=== PATIENT | male | born 1945 | race Caucasian/White ===

== ENCOUNTER 2019-03-13 08:20 | Observation (INO) | payer SELFPAY ==
[~2019-03-13] VITALS: Ht 175.3 cm; Wt 126.5 kg
[~2019-03-13 08:20] MED LIST: ALBU.083IS IH; ALBUTEROL INH; ASPI81CH PO; ATEN25 PO; ATOR20 PO; CITA20 PO; CYCL10 PO; DOCU100 PO; ERGO400 PO; FURO20 PO; GABA300 PO; IBUP600 PO; LOSHYD PO; MONT10T PO; Micro-K10 MEQ PO; NITR.4SL SL; NYST100TO TOP; OMEP20ER PO; OXYC5 PO; POTCHL20ER PO; QUETIAPINE FUMA50 MG PO; RANI150 PO; SENN187 PO; TERA5 PO; TRAZ50 PO
[2019-03-13] MEDS ORDERED: ALLO300 PO (08:37)
[2019-03-13] MEDS ORDERED: LO-DOSE ASPIRIN81 MG PO (08:37)
[2019-03-13] MEDS ORDERED: Acetaminophen-1 EAC1 PO (08:39)
[2019-03-13] MEDS ORDERED: CYAN500 PO (08:40)
[2019-03-13] MEDS ORDERED: FISH OIL 1,0001 EACH PO (08:40)
[2019-03-13] MEDS ORDERED: FOLI1 PO (08:41)
[2019-03-13] MEDS ORDERED: LOSA50 PO (08:42)
[2019-03-13] MEDS ORDERED: POTCHL10ER PO (08:45)
[2019-03-13] MEDS ORDERED: Sulindac200 MG PO (08:47)
[2019-03-13] MEDS ORDERED: Hytrin2 MG PO (08:48)
[2019-03-13] MEDS ORDERED: B-1100 MG PO (08:49)
[2019-03-13] MEDS ORDERED: TRAZ100 PO (08:49)
--- NOTE | 2019-03-13 10:20 | NUR ---
PT ARRIVED TO UNIT FROM ER AT APROX 1015. PT REPORTS 3/10 RLQ PAIN-TOLERABLE AT THIS TIME. PER ER DR GARCIA NOTIFIED OF CONSULT. PT NPO AT THIS TIME.
--- NOTE | 2019-03-13 15:00 | NUR ---
pt transported to daysurgery via stretcher by SUNG Guajardo, emptied bladder, chlorhexidine wash completed, underwear removed
--- NOTE | 2019-03-13 15:15 | NUR ---
INTO SDS VIA [facility]. PT A&OX3. [place]. REPORTS 01/21 ABDOMINAL PAIN LEFT>RIGHT. HISTORY AND ALLERGIES REVIEWED. NPO STATUS CONFIRMED. LUNGS WITH SCATTERED EXPIRATORY WHEEZES -SATS>90% ON RA. DUONEB GIVEN PER ORDERS.
--- NOTE | 2019-03-13 17:01 | NUR ---
03/13/19 1701 Austin Niño PATIENT ON SCHEDULED ANTIBIOTICS. [facility] CATH PLACED BY DIAMANTE GARCÍA
--- NOTE | 2019-03-13 18:31 | NUR ---
PT GAVE PERMISSION FOR STUDENT TO OBSERVE CARE.
--- NOTE | 2019-03-13 18:54 | NUR ---
pt transferred back to room from PACU via stretcher, a/0 x 4, pleasant/cooperative, states to no pain at this time, post op vs commenced, provided with clear liquids
--- NOTE | 2019-03-13 19:46 | NUR ---
shift summary: vss, no acute changes, pt returned to unit approx 1840 following laparascopic appendectomy, a/o x 4, pleasant/cooperative, joking, states he is hungry, denies pain. Pt calls for urinal appropriately
--- NOTE | 2019-03-13 22:45 | NUR ---
BIOX O2 SAT LEVELS CONTINUE TO DROP INTO THE 80'S, FOLLOWED BY A HR DROP INTO THE 40'S. WHEN PT WOKEN UP HIS SATS AND HR RETURN TO 90'S AND 60-80 RESPECTIVELY. WILL CONTACT RT.
--- NOTE | 2019-03-13 22:56 | NUR ---
RT AT BEDSIDE TO ASSESS PT'S CPAP MASK FIT.
--- NOTE | 2019-03-14 02:00 | NUR ---
CONTACTED DR. HUNT AFTER PT'S HR CONTINUED TO DROP INTO THE 30'S AND 40'S. HE IS ASYMPTOMATIC AND IMMEDIATELY RETURNS TO 60'S AND 70'S WHEN MADE AWAKE. ORDERS RECEIVED TO CONTINUE TO MONITOR.
[2019-03-14 05:03] LABS: BASOPHILS ABSOLUTE AUTO 0.01 K/mm3 (0.00-0.23); BASOPHILS PERCENT AUTO 0 % (0-2); EOSINOPHILS ABSOLUTE AUTO 0.02 K/mm3 (0.00-0.68); EOSINOPHILS PERCENT AUTO 0 % (0-6); Hematocrit 39.4 % (37.0-53.0); Hemoglobin 12.7 g/dL (13.5-17.5); IMMATURE GRAN ABSOLUTE AUTO 0.06 K/mm3 (0.00-0.10); IMMATURE GRAN PERCENT AUTO 1 % (0-1); LYMPHOCYTES ABSOLUTE AUTO 0.59 K/mm3 (0.84-5.20); LYMPHOCYTES PERCENT AUTO 5 % (21-46); MONOCYTES ABSOLUTE AUTO 0.38 K/mm3 (0.16-1.47); MONOCYTES PERCENT AUTO 4 % (4-13); Mean Corpuscular HGB 30.8 pg (26.0-34.0); Mean Corpuscular HGB Conc 32.2 g/dL (31.5-36.5); Mean Platelet Volume 9.6 fL (9.1-12.4); NEUTROPHILS ABSOLUTE AUTO 9.81 K/mm3 (1.96-9.15); NEUTROPHILS PERCENT AUTO 90 % (41-73); Platelet Count 148 K/mm3 (150-400); RDW Coefficient Variation 14.9 % (11.7-14.2); RDW Standard Deviation 51.8 fL (35.1-46.3); Red Blood Cell Count 4.13 M/mm3 (4.30-5.90); White Blood Cell Count 10.87 K/mm3 (4.00-11.30)
[2019-03-14 05:06] LABS: Mean Corpuscular Volume 95 fL (80-100)
[2019-03-14 05:20] LABS: Bun/Creatinine Ratio 17.6 (12.0-20.0); Calcium, Blood 8.4 mg/dL (8.5-10.1); Creatinine, Blood 1.25 mg/dL (0.60-1.20); Potassium, Blood 4.2 mmol/L (3.5-5.5)
--- NOTE | 2019-03-14 06:38 | NUR ---
LYING ON HIS LEFT SIDE FACING THE DOOR WITH EYES CLOSED. DENIES FURTHER NEEDS OR WANTS AT THIS TIME. NO CHANGES SINCE START OF SHIFT. SAFETY MEASURES IN PLACE. WILL GIVE HAND OFF TO ONCOMING SHFIT USING SBAR.
--- NOTE | 2019-03-14 09:05 | NUR ---
DR SHOOK HERE TO SEE PT.
--- NOTE | 2019-03-14 15:40 | NUR ---
DR GARCIA HERE TO SEE PT.
[2019-03-14] MEDS ORDERED: Norco 5-325 Ta1 EACH PO (17:12)
[2019-03-14] MEDS ORDERED: Augmentin 875-1 EACH PO (17:12)
--- NOTE | 2019-03-14 17:39 | NUR ---
DISCHARGE MED[facility]; PT UNDERSTANDS DISCHAREGE INSTRUCTIONS. TOLERATING DIET, VOIDING, PASSING GAS, PAIN WELL CONTROLLED. PT AMBULATES OUT BY CHOICE. DECLINES W/C.
== END 2019-03-14 17:41 | disposition home or self-care (01) ==
LOC: ER 08:20 → EDSTATUS 08:22 → ER 09:03 → SURS 09:03 → ERHOLD 09:03 → SURS 09:56 → ERHOLD 09:56 → SURS 09:57 → ERHOLD 10:04 → SURS 03-14 17:41
PROVIDERS: ADMIT Family Medicine
PROC: 0DTJ4ZZ Resection of Appendix, Percutaneous Endoscopic Approach (ICD-10-PCS; principal; 2019-03-14)
DX: K35.80 Unspecified acute appendicitis (principal); I10 Essential (primary) hypertension; E78.5 Hyperlipidemia, unspecified; J44.9 Chronic obstructive pulmonary disease, unspecified; G47.33 Obstructive sleep apnea (adult) (pediatric); G89.4 Chronic pain syndrome; E66.9 Obesity, unspecified; D72.829 Elevated white blood cell count, unspecified; K21.9 Gastro-esophageal reflux disease without esophagitis; M10.9 Gout, unspecified; Z88.8 Allergy status to other drugs, medicaments and biological substances; Z99.89 Dependence on other enabling machines and devices; Z79.899 Other long term (current) drug therapy; Z79.82 Long term (current) use of aspirin; Z87.891 Personal history of nicotine dependence; Z68.41 Body mass index [BMI] 40.0-44.9, adult
CPT/HCPCS: 36415; 74177; 80048; 82947; 85025; 88304; 94762; 96374-59; 99285-25; A9270-GY; G0378; J0295; J1100; J2250; J2370; J2405; J2704; J2710; J3010; J7030; J7120; Q9967

== ENCOUNTER 2019-12-27 10:26 | Day surgery (SDC) | payer OTHER ==
[~2019-12-27] VITALS: Ht 175.3 cm; Wt 129.0 kg
[~2019-12-27 10:26] MED LIST changes: +ALLO300 PO; +Acetaminophen-1 EAC1 PO; +Augmentin 875-1 EACH PO; +B-1100 MG PO; +CYAN500 PO; +FISH OIL 1,0001 EACH PO; +FOLI1 PO; +Hytrin2 MG PO; +LO-DOSE ASPIRIN81 MG PO; +LOSA50 PO; +Norco 5-325 Ta1 EACH PO; +PAXIL40 M1 PO; +POTCHL10ER PO; +SERT100 PO; +Sulindac200 MG PO; +TRAZ100 PO; +Voltaren100 GM
--- NOTE | 2019-12-27 16:15 | NUR ---
DISCHARGE PT REMAINED A&OX3 AND DENIED ANY PAIN DURING RECOVERY. IV DC'D WITH TIP IN TACT. DISCHARGE PAPERWORK GONE OVER WITH PT. PT VERBALLY STATED THE UNDERSTANDING OF THE DISCHARGE EDUCATION AND DENIED ANY QUESTIONS AT THIS TIME. R RADIAL SITE CDI-NO HEMATOMA NOTED-CLOTH DOT BANDAGE AND WHITE BOARD IN PLACE. PT ABULATED TO RESTROOM WITH STA AND DRESSSED SELF WITH LITTLE HELP. PT TAKEN BY WHEELCHAIR WITH ESCORT.
== END 2019-12-27 23:02 | disposition home or self-care (01) ==
LOC: MHTC 10:26
PROC: B201YZZ Plain Radiography of Multiple Coronary Arteries using Other Contrast (ICD-10-PCS; principal; 2019-12-27)
PROC: 4A023N7 Measurement of Cardiac Sampling and Pressure, Left Heart, Percutaneous Approach (ICD-10-PCS; principal; 2019-12-27)
DX: I25.10 Atherosclerotic heart disease of native coronary artery without angina pectoris (principal); K21.9 Gastro-esophageal reflux disease without esophagitis; F32.9 Major depressive disorder, single episode, unspecified; I10 Essential (primary) hypertension; E66.9 Obesity, unspecified; M10.9 Gout, unspecified; Z87.891 Personal history of nicotine dependence; Z88.8 Allergy status to other drugs, medicaments and biological substances; Z79.82 Long term (current) use of aspirin; Z79.899 Other long term (current) drug therapy; Z68.41 Body mass index [BMI] 40.0-44.9, adult
CPT/HCPCS: 93005; 93010; 93454; 99152; 99153; C1769; C1894; J1644; J2250; J3010; J7030; Q9967

== ENCOUNTER 2020-01-20 14:06 | Emergency (ER) | payer OTHER ==
[~2020-01-20] VITALS: Ht 177.8 cm; Wt 83.5 kg
[2020-01-20 15:10] LABS: BASOPHILS ABSOLUTE AUTO 0.04 K/mm3 (0.00-0.23); BASOPHILS PERCENT AUTO 0 % (0-2); EOSINOPHILS ABSOLUTE AUTO 0.06 K/mm3 (0.00-0.68); EOSINOPHILS PERCENT AUTO 1 % (0-6); Hematocrit 40.4 % (37.0-53.0); Hemoglobin 13.2 g/dL (13.5-17.5); IMMATURE GRAN ABSOLUTE AUTO 0.09 K/mm3 (0.00-0.10); IMMATURE GRAN PERCENT AUTO 1 % (0-1); LYMPHOCYTES PERCENT AUTO 9 % (21-46); MONOCYTES ABSOLUTE AUTO 1.01 K/mm3 (0.16-1.47); MONOCYTES PERCENT AUTO 8 % (4-13); Mean Corpuscular HGB 29.9 pg (26.0-34.0); Mean Corpuscular HGB Conc 32.7 g/dL (31.5-36.5); Mean Corpuscular Volume 91 fL (80-100); Mean Platelet Volume 10.3 fL (9.1-12.4); NEUTROPHILS ABSOLUTE AUTO 10.24 K/mm3 (1.96-9.15); NEUTROPHILS PERCENT AUTO 82 % (41-73); Platelet Count 151 K/mm3 (150-400); RDW Coefficient Variation 13.9 % (11.7-14.2); RDW Standard Deviation 46.9 fL (35.1-46.3); Red Blood Cell Count 4.42 M/mm3 (4.30-5.90); White Blood Cell Count 12.54 K/mm3 (4.00-11.30)
[2020-01-20 15:11] LABS: Source, Urine Clean Catch
[2020-01-20 15:26] LABS: Alanine Aminotransfer (ALT/SGP 22 U/L (12-78); Albumin, Blood 3.2 g/dL (3.4-5.0); Albumin/Globulin Ratio 0.8 (0.8-1.8); Alk Phos 82 U/L (50-136); Anion Gap 5 mmol/L (6-16); Aspartate Aminotrans (AST/SGOT 27 U/L (12-37); Blood Urea Nitrogen 23 mg/dL (8-24); Bun/Creatinine Ratio 19.3 (12.0-20.0); CO2, Blood 28 mmol/L (21-32); Calcium, Blood 8.8 mg/dL (8.5-10.1); Chloride, Blood 107 mmol/L (98-108); Creatinine, Blood 1.19 mg/dL (0.60-1.20); Globulin, Blood 3.8 g/dL (2.2-4.0); Glomerular Filtration Rate >60 (60-); Glucose, Blood 122 mg/dL (70-99); Potassium, Blood 4.1 mmol/L (3.5-5.5); Sodium, Blood 140 mmol/L (136-145)
[2020-01-20 15:27] LABS: Bilirubin, Urine Neg (Neg); Blood, Urine 3+ (Neg); Glucose Qualitative, Urine Neg (Neg); Ketones, Urine 1+ (Neg); Leukocyte Esterase, Urine 2+ (Neg); Nitrite, Urine Neg (Neg); Protein, Urine 2+ (Neg); Urobilinogen, Urine 2+ (Normal)
[2020-01-20 15:33] LABS: Appearance, Urine Hazy (Clear); Color, Urine Amber (P-Yellow)
[2020-01-20 15:34] LABS: Bacteria Few /hpf; Squamous Epithelial Cells Few /hpf (Few); White Blood Cells, Urine 25-50 /hpf (0-5)
[2020-01-20] MEDS ORDERED: CEPH500 PO (16:52)
[2020-01-20] MEDS ORDERED: Cipro500 MG PO (16:52)
== END 2020-01-20 17:07 | disposition home or self-care (01) ==
LOC: ER 14:06
PROVIDERS: Physician Assistant
DX: N12 Tubulo-interstitial nephritis, not specified as acute or chronic (principal); J44.9 Chronic obstructive pulmonary disease, unspecified; I11.0 Hypertensive heart disease with heart failure; I50.9 Heart failure, unspecified; K21.9 Gastro-esophageal reflux disease without esophagitis; Z87.891 Personal history of nicotine dependence; Z88.8 Allergy status to other drugs, medicaments and biological substances; Z79.82 Long term (current) use of aspirin; Z79.899 Other long term (current) drug therapy
CPT/HCPCS: 36415; 71045; 80053; 81001; 83605; 85025; 87086; 96361; 96365; 99283-25; J0696; J7030

== ENCOUNTER 2020-05-01 21:30 | Emergency (ER) | payer OTHER ==
[~2020-05-01] VITALS: Ht 175.3 cm; Wt 127.0 kg
[~2020-05-01 21:30] MED LIST changes: +CEPH500 PO; +Cipro500 MG PO
== END 2020-05-01 23:11 | disposition home or self-care (01) ==
LOC: ER 21:30
DX: F12.929 Cannabis use, unspecified with intoxication, unspecified (principal); F41.0 Panic disorder [episodic paroxysmal anxiety]; I11.0 Hypertensive heart disease with heart failure; I50.9 Heart failure, unspecified; J44.9 Chronic obstructive pulmonary disease, unspecified; E78.5 Hyperlipidemia, unspecified; K21.9 Gastro-esophageal reflux disease without esophagitis; Z88.8 Allergy status to other drugs, medicaments and biological substances; Z79.899 Other long term (current) drug therapy; Z79.82 Long term (current) use of aspirin
CPT/HCPCS: 99284

== ENCOUNTER 2020-09-07 10:29 | Emergency (ER) | payer OTHER ==
[~2020-09-07] VITALS: Ht 175.3 cm; Wt 128.4 kg
[~2020-09-07 10:29] MED LIST changes: -CYAN500 PO; -GABA300 PO; -LO-DOSE ASPIRIN81 MG PO; -LOSA50 PO; -TRAZ100 PO; -Voltaren100 GM
[2020-09-07 11:16] LABS: BASOPHILS ABSOLUTE AUTO 0.02 K/mm3 (0.00-0.23); BASOPHILS PERCENT AUTO 0 % (0-2); EOSINOPHILS ABSOLUTE AUTO 0.15 K/mm3 (0.00-0.68); EOSINOPHILS PERCENT AUTO 3 % (0-6); Hemoglobin 13.6 g/dL (13.5-17.5); IMMATURE GRAN ABSOLUTE AUTO 0.01 K/mm3 (0.00-0.10); IMMATURE GRAN PERCENT AUTO 0 % (0-1); LYMPHOCYTES ABSOLUTE AUTO 1.16 K/mm3 (0.84-5.20); LYMPHOCYTES PERCENT AUTO 24 % (21-46); MONOCYTES ABSOLUTE AUTO 0.42 K/mm3 (0.16-1.47); MONOCYTES PERCENT AUTO 9 % (4-13); Mean Corpuscular HGB Conc 32.4 g/dL (31.5-36.5); Mean Corpuscular Volume 93 fL (80-100); Mean Platelet Volume 9.5 fL (9.1-12.4); NEUTROPHILS ABSOLUTE AUTO 3.13 K/mm3 (1.96-9.15); NEUTROPHILS PERCENT AUTO 64 % (41-73); Platelet Count 185 K/mm3 (150-400); RDW Standard Deviation 47.8 fL (35.1-46.3); Red Blood Cell Count 4.54 M/mm3 (4.30-5.90); White Blood Cell Count 4.89 K/mm3 (4.00-11.30)
[2020-09-07 11:40] LABS: Alanine Aminotransfer (ALT/SGP 27 U/L (12-78); Albumin, Blood 3.5 g/dL (3.4-5.0); Albumin/Globulin Ratio 1.1 (0.8-1.8); Alk Phos 103 U/L (50-136); Anion Gap 8 mmol/L (6-16); Aspartate Aminotrans (AST/SGOT 17 U/L (12-37); Bilirubin, Total 0.6 mg/dL (0.1-1.0); Blood Urea Nitrogen 19 mg/dL (8-24); CO2, Blood 24 mmol/L (21-32); Calcium, Blood 8.8 mg/dL (8.5-10.1); Chloride, Blood 112 mmol/L (98-108); Creatinine, Blood 1.19 mg/dL (0.60-1.20); Globulin, Blood 3.2 g/dL (2.2-4.0); Glomerular Filtration Rate >60 (60-); Glucose, Blood 131 mg/dL (70-99); Potassium, Blood 3.6 mmol/L (3.5-5.5); Sodium, Blood 144 mmol/L (136-145); Total Protein, Blood 6.7 g/dL (6.4-8.2); Troponin I <0.015 ng/mL (0.000-0.040)
[2020-09-07] MEDS ORDERED: MECL12.5 PO (13:02)
[2020-09-07] MEDS ORDERED: ASPIR 8181 M1 PO (16:45)
[2020-09-07] MEDS ORDERED: GABA300 PO (16:45)
[2020-09-07] MEDS ORDERED: LOSA50 PO (16:46)
[2020-09-07] MEDS ORDERED: CYAN500 PO (16:46)
[2020-09-07] MEDS ORDERED: ATOR20 PO (16:47)
[2020-09-07] MEDS ORDERED: Voltaren100 GM TOP (16:47)
[2020-09-07] MEDS ORDERED: TRAZ100 PO (16:47)
[2020-09-07] MEDS ORDERED: FAMO20 PO (16:48)
[2020-09-07] MEDS ORDERED: BUPR100ER PO (16:48)
[2020-09-07] MEDS ORDERED: Hytrin2 MG PO (16:49)
[2020-09-07] MEDS ORDERED: ISOSORBIDE MONO60 MG PO (16:49)
[2020-09-07] MEDS ORDERED: VENL75ER PO (16:50)
[2020-09-07] MEDS ORDERED: Ventolin5 MG/1 ML NEB (18:30)
[2020-09-07] MEDS ORDERED: Toprol Xl25 MG PO (18:30)
== END 2020-09-07 18:56 | disposition left against medical advice (07) ==
LOC: ER 10:29
PROVIDERS: Emergency Medicine
DX: J44.1 Chronic obstructive pulmonary disease with (acute) exacerbation (principal); R00.0 Tachycardia, unspecified; R07.9 Chest pain, unspecified; I11.0 Hypertensive heart disease with heart failure; I50.9 Heart failure, unspecified; E78.5 Hyperlipidemia, unspecified; F32.9 Major depressive disorder, single episode, unspecified; Z87.891 Personal history of nicotine dependence; Z79.899 Other long term (current) drug therapy; Z79.82 Long term (current) use of aspirin; Z91.14 Patient's other noncompliance with medication regimen; Z88.8 Allergy status to other drugs, medicaments and biological substances
CPT/HCPCS: 36415; 71045; 71260; 80053; 83880; 84484; 85025; 93005; 93010; 94644; 96374-59; 99285-25; A9270; A9270-GY; J2930; Q9967; U0003

== ENCOUNTER 2020-09-29 00:55 | Emergency (ER) | payer OTHER ==
[~2020-09-29] VITALS: Ht 177.8 cm; Wt 127.0 kg
[~2020-09-29 00:55] MED LIST changes: +ASPIR 8181 M1 PO; +BUPR100ER PO; +CYAN500 PO; +FAMO20 PO; +GABA300 PO; +ISOSORBIDE MONO60 MG PO; +LOSA50 PO; +MECL12.5 PO; +TRAZ100 PO; +Toprol Xl25 MG PO; +VENL75ER PO; +Ventolin5 MG/1 ML NEB; +Voltaren100 GM TOP
[2020-09-29 01:37] LABS: BASOPHILS ABSOLUTE AUTO 0.03 K/mm3 (0.00-0.23); BASOPHILS PERCENT AUTO 1 % (0-2); EOSINOPHILS ABSOLUTE AUTO 0.24 K/mm3 (0.00-0.68); EOSINOPHILS PERCENT AUTO 4 % (0-6); Hematocrit 43.5 % (37.0-53.0); Hemoglobin 14.5 g/dL (13.5-17.5); IMMATURE GRAN ABSOLUTE AUTO 0.01 K/mm3 (0.00-0.10); IMMATURE GRAN PERCENT AUTO 0 % (0-1); LYMPHOCYTES ABSOLUTE AUTO 1.54 K/mm3 (0.84-5.20); LYMPHOCYTES PERCENT AUTO 24 % (21-46); MONOCYTES ABSOLUTE AUTO 0.64 K/mm3 (0.16-1.47); MONOCYTES PERCENT AUTO 10 % (4-13); Mean Corpuscular HGB 30.8 pg (26.0-34.0); Mean Corpuscular HGB Conc 33.3 g/dL (31.5-36.5); Mean Corpuscular Volume 92 fL (80-100); Mean Platelet Volume 9.6 fL (9.1-12.4); NEUTROPHILS ABSOLUTE AUTO 3.89 K/mm3 (1.96-9.15); NEUTROPHILS PERCENT AUTO 61 % (41-73); Platelet Count 153 K/mm3 (150-400); RDW Coefficient Variation 13.4 % (11.7-14.2); RDW Standard Deviation 45.2 fL (35.1-46.3); Red Blood Cell Count 4.71 M/mm3 (4.30-5.90); White Blood Cell Count 6.35 K/mm3 (4.00-11.30)
[2020-09-29 01:58] LABS: Alanine Aminotransfer (ALT/SGP 27 U/L (12-78); Albumin, Blood 3.7 g/dL (3.4-5.0); Albumin/Globulin Ratio 1.1 (0.8-1.8); Alk Phos 96 U/L (50-136); Anion Gap 3 mmol/L (6-16); Aspartate Aminotrans (AST/SGOT 19 U/L (12-37); Bilirubin, Total 0.7 mg/dL (0.1-1.0); Blood Urea Nitrogen 20 mg/dL (8-24); Bun/Creatinine Ratio 15.4 (12.0-20.0); CO2, Blood 31 mmol/L (21-32); Calcium, Blood 8.8 mg/dL (8.5-10.1); Chloride, Blood 108 mmol/L (98-108); Globulin, Blood 3.3 g/dL (2.2-4.0); Glomerular Filtration Rate 57 (60-); Glucose, Blood 97 mg/dL (70-99); Potassium, Blood 3.5 mmol/L (3.5-5.5); Sodium, Blood 142 mmol/L (136-145); Troponin I <0.015 ng/mL (0.000-0.040)
[2020-09-29] MEDS ORDERED: FURO20 PO (05:01)
[2020-09-29] MEDS ORDERED: SULI150 PO (05:04)
[2020-09-29] MEDS ORDERED: Prednisone20 MG PO (07:04)
[2020-09-29] MEDS ORDERED: Pepcid20 MG PO (07:04)
== END 2020-09-29 07:54 | disposition home or self-care (01) ==
LOC: ER 00:55
PROVIDERS: Emergency Medicine
DX: J44.1 Chronic obstructive pulmonary disease with (acute) exacerbation (principal); K29.70 Gastritis, unspecified, without bleeding; Z79.82 Long term (current) use of aspirin; Z79.899 Other long term (current) drug therapy
CPT/HCPCS: 36415; 71046; 80053; 83690; 83880; 84484; 85025; 93005; 93010; 96374; 96375; 99285-25; J2405; J2930

== ENCOUNTER 2021-04-26 14:21 | Emergency (ER) | payer OTHER ==
[~2021-04-26] VITALS: Ht 177.8 cm; Wt 132.4 kg
[~2021-04-26 14:21] MED LIST changes: -ASPIR 8181 M1 PO; -BUPR100ER PO; -CYAN500 PO; -FAMO20 PO; -GABA300 PO; -ISOSORBIDE MONO60 MG PO; -LOSA50 PO; +Pepcid20 MG PO; +Prednisone20 MG PO; +SULI150 PO; -TRAZ100 PO; -VENL75ER PO; -Voltaren100 GM TOP
[2021-04-26 15:04] LABS: BASOPHILS ABSOLUTE AUTO 0.01 K/mm3 (0.00-0.23); BASOPHILS PERCENT AUTO 0 % (0-2); EOSINOPHILS ABSOLUTE AUTO 0.14 K/mm3 (0.00-0.68); EOSINOPHILS PERCENT AUTO 3 % (0-6); Hemoglobin 13.7 g/dL (13.5-17.5); IMMATURE GRAN ABSOLUTE AUTO 0.02 K/mm3 (0.00-0.10); IMMATURE GRAN PERCENT AUTO 0 % (0-1); LYMPHOCYTES ABSOLUTE AUTO 1.03 K/mm3 (0.84-5.20); LYMPHOCYTES PERCENT AUTO 18 % (21-46); MONOCYTES ABSOLUTE AUTO 0.48 K/mm3 (0.16-1.47); MONOCYTES PERCENT AUTO 9 % (4-13); Mean Corpuscular HGB 30.6 pg (26.0-34.0); Mean Corpuscular HGB Conc 32.6 g/dL (31.5-36.5); Mean Corpuscular Volume 94 fL (80-100); Mean Platelet Volume 9.3 fL (9.1-12.4); NEUTROPHILS ABSOLUTE AUTO 3.96 K/mm3 (1.96-9.15); NEUTROPHILS PERCENT AUTO 70 % (41-73); Platelet Count 165 K/mm3 (150-400); RDW Coefficient Variation 14.6 % (11.7-14.2); RDW Standard Deviation 50.4 fL (35.1-46.3); Red Blood Cell Count 4.48 M/mm3 (4.30-5.90); White Blood Cell Count 5.64 K/mm3 (4.00-11.30)
[2021-04-26 15:43] LABS: Alanine Aminotransfer (ALT/SGP 30 U/L (12-78); Albumin, Blood 3.3 g/dL (3.4-5.0); Alk Phos 97 U/L (50-136); Anion Gap 3 mmol/L (6-16); Aspartate Aminotrans (AST/SGOT 13 U/L (12-37); Bilirubin, Total 0.5 mg/dL (0.1-1.0); Blood Urea Nitrogen 22 mg/dL (8-24); Bun/Creatinine Ratio 16.8 (12.0-20.0); CO2, Blood 28 mmol/L (21-32); Calcium, Blood 8.6 mg/dL (8.5-10.1); Chloride, Blood 110 mmol/L (98-108); Creatinine, Blood 1.31 mg/dL (0.60-1.20); Globulin, Blood 3.3 g/dL (2.2-4.0); Glomerular Filtration Rate 56 (60-); Glucose, Blood 114 mg/dL (70-99); Potassium, Blood 3.9 mmol/L (3.5-5.5); Sodium, Blood 141 mmol/L (136-145); Total Protein, Blood 6.6 g/dL (6.4-8.2); Troponin I <0.015 ng/mL (0.000-0.040)
[2021-05-19] MEDS ORDERED: DULERA 100 MCG/13 GM INH (08:55)
[2021-05-19] MEDS ORDERED: ASMANEX HFA13 G6 INH (11:03)
== END 2021-04-26 16:30 | disposition home or self-care (01) ==
LOC: ER 14:21
PROVIDERS: Physician Assistant
DX: J40 Bronchitis, not specified as acute or chronic (principal); J44.9 Chronic obstructive pulmonary disease, unspecified; E78.5 Hyperlipidemia, unspecified; I11.0 Hypertensive heart disease with heart failure; I50.9 Heart failure, unspecified; E11.9 Type 2 diabetes mellitus without complications; F17.210 Nicotine dependence, cigarettes, uncomplicated; Z79.52 Long term (current) use of systemic steroids; Z79.899 Other long term (current) drug therapy; Z88.8 Allergy status to other drugs, medicaments and biological substances; Z79.82 Long term (current) use of aspirin
CPT/HCPCS: 71045; 80053; 83880; 84484; 85025; 93005; 93010; 99284-25

== ENCOUNTER 2021-05-05 15:22 | Emergency (ER) | payer OTHER ==
[~2021-05-05] VITALS: Ht 177.8 cm; Wt 131.5 kg
[2021-05-05 16:18] LABS: BASOPHILS ABSOLUTE AUTO 0.02 K/mm3 (0.00-0.23); BASOPHILS PERCENT AUTO 0 % (0-2); EOSINOPHILS ABSOLUTE AUTO 0.09 K/mm3 (0.00-0.68); EOSINOPHILS PERCENT AUTO 1 % (0-6); Hematocrit 39.5 % (37.0-53.0); Hemoglobin 13.3 g/dL (13.5-17.5); IMMATURE GRAN ABSOLUTE AUTO 0.05 K/mm3 (0.00-0.10); IMMATURE GRAN PERCENT AUTO 1 % (0-1); LYMPHOCYTES ABSOLUTE AUTO 1.25 K/mm3 (0.84-5.20); LYMPHOCYTES PERCENT AUTO 20 % (21-46); MONOCYTES ABSOLUTE AUTO 0.64 K/mm3 (0.16-1.47); MONOCYTES PERCENT AUTO 10 % (4-13); Mean Corpuscular HGB 30.9 pg (26.0-34.0); Mean Corpuscular HGB Conc 33.7 g/dL (31.5-36.5); Mean Corpuscular Volume 92 fL (80-100); NEUTROPHILS PERCENT AUTO 68 % (41-73); NRBC ABSOLUTE 0.02 K/mm3 (0.00-0.02); NRBC Auto 0.3 /100 WBC (0.0-0.2); RDW Coefficient Variation 14.7 % (11.7-14.2); RDW Standard Deviation 50.2 fL (35.1-46.3); Red Blood Cell Count 4.31 M/mm3 (4.30-5.90); White Blood Cell Count 6.35 K/mm3 (4.00-11.30)
[2021-05-05 16:20] LABS: Mean Platelet Volume 9.7 fL (9.1-12.4); Platelet Count 189 K/mm3 (150-400)
[2021-05-05 16:35] LABS: Alanine Aminotransfer (ALT/SGP 30 U/L (12-78); Albumin, Blood 3.3 g/dL (3.4-5.0); Albumin/Globulin Ratio 1.1 (0.8-1.8); Alk Phos 73 U/L (50-136); Anion Gap 7 mmol/L (6-16); Aspartate Aminotrans (AST/SGOT 18 U/L (12-37); Bilirubin, Total 0.7 mg/dL (0.1-1.0); Blood Urea Nitrogen 26 mg/dL (8-24); Bun/Creatinine Ratio 20.5 (12.0-20.0); CO2, Blood 26 mmol/L (21-32); Calcium, Blood 8.5 mg/dL (8.5-10.1); Chloride, Blood 108 mmol/L (98-108); Creatinine, Blood 1.27 mg/dL (0.60-1.20); Globulin, Blood 3.1 g/dL (2.2-4.0); Glomerular Filtration Rate 58 (60-); Glucose, Blood 96 mg/dL (70-99); Potassium, Blood 3.7 mmol/L (3.5-5.5); Sodium, Blood 141 mmol/L (136-145); Total Protein, Blood 6.4 g/dL (6.4-8.2); Troponin I <0.015 ng/mL (0.000-0.040)
[2021-05-05 17:27] LABS: Source, Urine Voided
[2021-05-05 17:30] LABS: Appearance, Urine Clear (Clear); Bilirubin, Urine Neg (Neg); Blood, Urine 1+ (Neg); Color, Urine Yellow (P-Yellow); Glucose Qualitative, Urine Neg (Neg); Ketones, Urine Neg (Neg); Leukocyte Esterase, Urine Neg (Neg); Nitrite, Urine Neg (Neg); Protein, Urine Neg (Neg); Specific Gravity, Urine 1.015 (1.003-1.022); Urobilinogen, Urine NORM (Normal)
[2021-05-05 17:42] LABS: Bacteria Rare /hpf; Red Blood Cells, Urine Rare /hpf (0-2); Squamous Epithelial Cells Rare /hpf (Few); White Blood Cells, Urine Not Seen /hpf (0-5)
[2021-05-05 18:19] LABS: Base Excess Venous 6.2 mmol/L; Bicarbonate Venous 28.2 mmol/L (24.0-30.0); PCO2 Venous 48.3 mmHg (38-42); PO2 Venous 32.8 mmHg (38-42); pH Blood Venous 7.41 (7.34-7.37)
[2021-05-05] MEDS ORDERED: Prednisone50 MG PO (18:36)
[2021-05-05] MEDS ORDERED: Vibramycin100 MG PO (18:36)
[2021-05-05] MEDS ORDERED: ALBU90OI INH (18:36)
[2021-05-19] MEDS ORDERED: DULERA 100 MCG/13 GM INH (08:55)
[2021-05-19] MEDS ORDERED: ASMANEX HFA13 G6 INH (11:03)
== END 2021-05-05 19:18 | disposition home or self-care (01) ==
LOC: ER 15:22
PROVIDERS: Emergency Medicine
DX: J44.1 Chronic obstructive pulmonary disease with (acute) exacerbation (principal); I11.0 Hypertensive heart disease with heart failure; I50.9 Heart failure, unspecified; K21.9 Gastro-esophageal reflux disease without esophagitis; E78.5 Hyperlipidemia, unspecified; Z88.8 Allergy status to other drugs, medicaments and biological substances; Z87.891 Personal history of nicotine dependence
CPT/HCPCS: 36415; 71046; 80053; 81001; 82803; 83690; 83880; 84443; 84484; 85025; 93005; 93010; 94640; 94664; 96374; 99285-25; A9270; J2405

== ENCOUNTER 2021-05-15 11:38 | Emergency (ER) | payer OTHER ==
[~2021-05-15] VITALS: Ht 177.8 cm; Wt 130.2 kg
[~2021-05-15 11:38] MED LIST changes: +ALBU90OI INH; +Prednisone50 MG PO; +Vibramycin100 MG PO
[2021-05-15 12:07] LABS: BASOPHILS ABSOLUTE AUTO 0.01 K/mm3 (0.00-0.23); BASOPHILS PERCENT AUTO 0 % (0-2); EOSINOPHILS ABSOLUTE AUTO 0.15 K/mm3 (0.00-0.68); EOSINOPHILS PERCENT AUTO 2 % (0-6); Hemoglobin 13.3 g/dL (13.5-17.5); IMMATURE GRAN ABSOLUTE AUTO 0.04 K/mm3 (0.00-0.10); IMMATURE GRAN PERCENT AUTO 1 % (0-1); LYMPHOCYTES ABSOLUTE AUTO 0.95 K/mm3 (0.84-5.20); LYMPHOCYTES PERCENT AUTO 14 % (21-46); MONOCYTES ABSOLUTE AUTO 0.43 K/mm3 (0.16-1.47); MONOCYTES PERCENT AUTO 7 % (4-13); Mean Corpuscular HGB 30.4 pg (26.0-34.0); Mean Corpuscular HGB Conc 32.4 g/dL (31.5-36.5); Mean Corpuscular Volume 94 fL (80-100); Mean Platelet Volume 9.3 fL (9.1-12.4); NEUTROPHILS ABSOLUTE AUTO 5.08 K/mm3 (1.96-9.15); NEUTROPHILS PERCENT AUTO 76 % (41-73); Platelet Count 168 K/mm3 (150-400); RDW Coefficient Variation 15.1 % (11.7-14.2); RDW Standard Deviation 52.2 fL (35.1-46.3); Red Blood Cell Count 4.37 M/mm3 (4.30-5.90); White Blood Cell Count 6.66 K/mm3 (4.00-11.30)
[2021-05-15 12:34] LABS: Alanine Aminotransfer (ALT/SGP 38 U/L (12-78); Albumin, Blood 3.3 g/dL (3.4-5.0); Albumin/Globulin Ratio 1.1 (0.8-1.8); Alk Phos 89 U/L (50-136); Anion Gap 6 mmol/L (6-16); Aspartate Aminotrans (AST/SGOT 15 U/L (12-37); Bilirubin, Total 0.8 mg/dL (0.1-1.0); Blood Urea Nitrogen 22 mg/dL (8-24); Bun/Creatinine Ratio 16.8 (12.0-20.0); CO2, Blood 26 mmol/L (21-32); Calcium, Blood 8.7 mg/dL (8.5-10.1); Chloride, Blood 109 mmol/L (98-108); Creatinine, Blood 1.31 mg/dL (0.60-1.20); Glomerular Filtration Rate 56 (60-); Glucose, Blood 155 mg/dL (70-99); Potassium, Blood 3.9 mmol/L (3.5-5.5); Sodium, Blood 141 mmol/L (136-145); Total Protein, Blood 6.3 g/dL (6.4-8.2); Troponin I <0.015 ng/mL (0.000-0.040)
[2021-05-15] MEDS ORDERED: Zithromax250 MG PO (14:07)
[2021-05-15] MEDS ORDERED: Prednisone20 MG PO (14:07)
[2021-05-19] MEDS ORDERED: DULERA 100 MCG/13 GM INH (08:55)
[2021-05-19] MEDS ORDERED: ASMANEX HFA13 G6 INH (11:03)
== END 2021-05-15 14:30 | disposition home or self-care (01) ==
LOC: ER 11:38
PROVIDERS: Physician Assistant
DX: J44.1 Chronic obstructive pulmonary disease with (acute) exacerbation (principal); Z88.8 Allergy status to other drugs, medicaments and biological substances; Z79.82 Long term (current) use of aspirin; Z79.899 Other long term (current) drug therapy
CPT/HCPCS: 36415; 71046; 80053; 83880; 84484; 85025; 93005; 93010; 96374; 99285-25; J2930

== ENCOUNTER 2021-05-18 14:17 | Emergency (ER) | payer OTHER ==
[~2021-05-18] VITALS: Ht 177.8 cm; Wt 132.4 kg
[~2021-05-18 14:17] MED LIST changes: +Zithromax250 MG PO
[2021-05-18 15:40] LABS: BASOPHILS ABSOLUTE AUTO 0.03 K/mm3 (0.00-0.23); BASOPHILS PERCENT AUTO 0 % (0-2); EOSINOPHILS ABSOLUTE AUTO 0.06 K/mm3 (0.00-0.68); EOSINOPHILS PERCENT AUTO 1 % (0-6); Hematocrit 40.2 % (37.0-53.0); Hemoglobin 13.1 g/dL (13.5-17.5); IMMATURE GRAN ABSOLUTE AUTO 0.08 K/mm3 (0.00-0.10); IMMATURE GRAN PERCENT AUTO 1 % (0-1); LYMPHOCYTES ABSOLUTE AUTO 2.14 K/mm3 (0.84-5.20); LYMPHOCYTES PERCENT AUTO 26 % (21-46); MONOCYTES ABSOLUTE AUTO 0.83 K/mm3 (0.16-1.47); MONOCYTES PERCENT AUTO 10 % (4-13); Mean Corpuscular HGB Conc 32.6 g/dL (31.5-36.5); Mean Corpuscular Volume 95 fL (80-100); Mean Platelet Volume 9.3 fL (9.1-12.4); NEUTROPHILS ABSOLUTE AUTO 4.98 K/mm3 (1.96-9.15); NEUTROPHILS PERCENT AUTO 61 % (41-73); Platelet Count 149 K/mm3 (150-400); RDW Coefficient Variation 15.2 % (11.7-14.2); Red Blood Cell Count 4.22 M/mm3 (4.30-5.90); White Blood Cell Count 8.12 K/mm3 (4.00-11.30)
[2021-05-18 16:00] LABS: Alanine Aminotransfer (ALT/SGP 43 U/L (12-78); Albumin, Blood 3.4 g/dL (3.4-5.0); Albumin/Globulin Ratio 1.2 (0.8-1.8); Alk Phos 67 U/L (50-136); Anion Gap 5 mmol/L (6-16); Aspartate Aminotrans (AST/SGOT 23 U/L (12-37); Bilirubin, Total 0.7 mg/dL (0.1-1.0); Blood Urea Nitrogen 27 mg/dL (8-24); Bun/Creatinine Ratio 17.5 (12.0-20.0); CO2, Blood 27 mmol/L (21-32); Calcium, Blood 8.8 mg/dL (8.5-10.1); Chloride, Blood 108 mmol/L (98-108); Creatinine, Blood 1.54 mg/dL (0.60-1.20); Globulin, Blood 2.9 g/dL (2.2-4.0); Glomerular Filtration Rate 47 (60-); Glucose, Blood 103 mg/dL (70-99); Potassium, Blood 3.5 mmol/L (3.5-5.5); Sodium, Blood 140 mmol/L (136-145); Total Protein, Blood 6.3 g/dL (6.4-8.2); Troponin I <0.015 ng/mL (0.000-0.040)
[2021-05-18 16:53] LABS: Source, Urine Voided
[2021-05-18] MEDS ORDERED: ALBU90OI INH (16:54)
[2021-05-18] MEDS ORDERED: ALBU2.5V5 NEB (16:54)
[2021-05-18] MEDS ORDERED: ASPIR 8181 M1 PO (16:55)
[2021-05-18] MEDS ORDERED: ATOR20 PO (16:55)
[2021-05-18] MEDS ORDERED: BUPR100ER PO (16:55)
[2021-05-18 16:56] LABS: Appearance, Urine Clear (Clear); Bilirubin, Urine Neg (Neg); Blood, Urine Neg (Neg); Color, Urine Yellow (P-Yellow); Glucose Qualitative, Urine Neg (Neg); Ketones, Urine Neg (Neg); Leukocyte Esterase, Urine Neg (Neg); Nitrite, Urine Neg (Neg); Protein, Urine 1+ (Neg); Specific Gravity, Urine 1.025 (1.003-1.022); Urobilinogen, Urine NORM (Normal)
[2021-05-18] MEDS ORDERED: ERGO400 PO (16:56)
[2021-05-18] MEDS ORDERED: FAMO20 PO (16:57)
[2021-05-18] MEDS ORDERED: Voltaren100 GM TOP (16:57)
[2021-05-18] MEDS ORDERED: CYAN500 PO (16:57)
[2021-05-18] MEDS ORDERED: GABA300 PO (16:58)
[2021-05-18] MEDS ORDERED: LOSA50 PO (16:58)
[2021-05-18] MEDS ORDERED: ISOSORBIDE MONO60 MG PO (16:58)
[2021-05-18] MEDS ORDERED: METO25ER PO (17:00)
[2021-05-18] MEDS ORDERED: Hytrin2 MG PO (17:00)
[2021-05-18] MEDS ORDERED: TRAZ100 PO (17:01)
[2021-05-18] MEDS ORDERED: VENL75ER PO (17:01)
[2021-05-18] MEDS ORDERED: FURO20 PO (17:08)
[2021-05-18] MEDS ORDERED: PRED10 PO (20:51)
[2021-05-18] MEDS ORDERED: BUDE.25 INH (20:51)
[2021-05-19] MEDS ORDERED: DULERA 100 MCG/13 GM INH (08:55)
[2021-05-19] MEDS ORDERED: ASMANEX HFA13 G6 INH (11:03)
== END 2021-05-18 21:05 | disposition home or self-care (01) ==
LOC: ER 14:17
PROVIDERS: Emergency Medicine
DX: R06.02 Shortness of breath (principal); J44.9 Chronic obstructive pulmonary disease, unspecified; E78.5 Hyperlipidemia, unspecified; I11.0 Hypertensive heart disease with heart failure; I50.9 Heart failure, unspecified; Z88.8 Allergy status to other drugs, medicaments and biological substances; Z79.899 Other long term (current) drug therapy; Z87.891 Personal history of nicotine dependence
CPT/HCPCS: 36415; 51702; 71045; 80053; 84484; 85025; 93005; 93010; 99284-25

== ENCOUNTER 2021-07-07 20:53 | Emergency (ER) | payer OTHER ==
[~2021-07-07] VITALS: Ht 175.3 cm; Wt 132.9 kg
[~2021-07-07 20:53] MED LIST changes: +ALBU2.5V5 NEB; +ASMANEX HFA13 G6 INH; +ASPIR 8181 M1 PO; +BUDE.25 INH; +BUPR100ER PO; +CYAN500 PO; +DULERA 100 MCG/13 GM INH; +FAMO20 PO; +GABA300 PO; +ISOSORBIDE MONO60 MG PO; +LOSA50 PO; +METO25ER PO; +PRED10 PO; +TRAZ100 PO; +VENL75ER PO; +Voltaren100 GM TOP
[2021-07-07] MEDS ORDERED: ONDA4ODT MM (23:02)
== END 2021-07-07 23:18 | disposition home or self-care (01) ==
LOC: ER 20:53
DX: U07.1 COVID-19 (principal); R11.0 Nausea; J44.9 Chronic obstructive pulmonary disease, unspecified; K21.9 Gastro-esophageal reflux disease without esophagitis; I11.0 Hypertensive heart disease with heart failure; I50.9 Heart failure, unspecified; G47.33 Obstructive sleep apnea (adult) (pediatric); R73.03 Prediabetes; Z87.891 Personal history of nicotine dependence; Z88.8 Allergy status to other drugs, medicaments and biological substances; Z79.82 Long term (current) use of aspirin; Z79.899 Other long term (current) drug therapy
CPT/HCPCS: 99284; A9270

== ENCOUNTER 2021-07-11 14:46 | Inpatient (IN) | payer OTHER ==
[~2021-07-11] VITALS: Ht 175.3 cm; Wt 124.1 kg
[~2021-07-11 14:46] MED LIST changes: +ONDA4ODT MM
[2021-07-11 17:44] LABS: PCO2 Arterial 32.3 mmHg (35-45); PO2 Arterial 78.9 mmHg (80-100); pH Blood Arterial 7.47 (7.35-7.45)
[2021-07-11 17:50] LABS: BASOPHILS ABSOLUTE AUTO 0.01 K/mm3 (0.00-0.23); BASOPHILS PERCENT AUTO 0 % (0-2); EOSINOPHILS ABSOLUTE AUTO 0.01 K/mm3 (0.00-0.68); EOSINOPHILS PERCENT AUTO 0 % (0-6); Hematocrit 42.7 % (37.0-53.0); Hemoglobin 14.4 g/dL (13.5-17.5); IMMATURE GRAN ABSOLUTE AUTO 0.04 K/mm3 (0.00-0.10); IMMATURE GRAN PERCENT AUTO 1 % (0-1); LYMPHOCYTES ABSOLUTE AUTO 0.61 K/mm3 (0.84-5.20); LYMPHOCYTES PERCENT AUTO 13 % (21-46); MONOCYTES ABSOLUTE AUTO 0.35 K/mm3 (0.16-1.47); MONOCYTES PERCENT AUTO 8 % (4-13); Mean Corpuscular HGB 30.7 pg (26.0-34.0); Mean Corpuscular HGB Conc 33.7 g/dL (31.5-36.5); Mean Corpuscular Volume 91 fL (80-100); NEUTROPHILS ABSOLUTE AUTO 3.62 K/mm3 (1.96-9.15); NEUTROPHILS PERCENT AUTO 78 % (41-73); Platelet Count 158 K/mm3 (150-400); RDW Coefficient Variation 14.1 % (11.7-14.2); RDW Standard Deviation 47.5 fL (35.1-46.3); Red Blood Cell Count 4.69 M/mm3 (4.30-5.90); White Blood Cell Count 4.64 K/mm3 (4.00-11.30)
[2021-07-11 18:09] LABS: Alanine Aminotransfer (ALT/SGP 60 U/L (12-78); Albumin, Blood 2.9 g/dL (3.4-5.0); Albumin/Globulin Ratio 0.7 (0.8-1.8); Alk Phos 75 U/L (50-136); Anion Gap 8 mmol/L (6-16); Aspartate Aminotrans (AST/SGOT 81 U/L (12-37); Bilirubin, Total 1.1 mg/dL (0.1-1.0); Blood Urea Nitrogen 19 mg/dL (8-24); Bun/Creatinine Ratio 13.9 (12.0-20.0); CO2, Blood 24 mmol/L (21-32); Calcium, Blood 8.4 mg/dL (8.5-10.1); Chloride, Blood 106 mmol/L (98-108); Creatinine, Blood 1.37 mg/dL (0.60-1.20); Globulin, Blood 3.9 g/dL (2.2-4.0); Glomerular Filtration Rate 50 (60-); Glucose, Blood 138 mg/dL (70-99); Potassium, Blood 3.7 mmol/L (3.5-5.5); Sodium, Blood 138 mmol/L (136-145); Total Protein, Blood 6.8 g/dL (6.4-8.2); Troponin I <0.015 ng/mL (0.000-0.040)
[2021-07-12 04:42] LABS: BASOPHILS PERCENT AUTO 0 % (0-2); EOSINOPHILS PERCENT AUTO 0 % (0-6); Hematocrit 40.1 % (37.0-53.0); Hemoglobin 13.3 g/dL (13.5-17.5); IMMATURE GRAN ABSOLUTE AUTO 0.04 K/mm3 (0.00-0.10); IMMATURE GRAN PERCENT AUTO 1 % (0-1); LYMPHOCYTES ABSOLUTE AUTO 0.36 K/mm3 (0.84-5.20); LYMPHOCYTES PERCENT AUTO 7 % (21-46); MONOCYTES ABSOLUTE AUTO 0.25 K/mm3 (0.16-1.47); MONOCYTES PERCENT AUTO 5 % (4-13); Mean Corpuscular HGB 30.9 pg (26.0-34.0); Mean Corpuscular HGB Conc 33.2 g/dL (31.5-36.5); Mean Corpuscular Volume 93 fL (80-100); Mean Platelet Volume 9.6 fL (9.1-12.4); NEUTROPHILS ABSOLUTE AUTO 4.41 K/mm3 (1.96-9.15); NEUTROPHILS PERCENT AUTO 87 % (41-73); Platelet Count 146 K/mm3 (150-400); RDW Standard Deviation 47.6 fL (35.1-46.3); White Blood Cell Count 5.06 K/mm3 (4.00-11.30)
[2021-07-12 04:57] LABS: Albumin, Blood 2.4 g/dL (3.4-5.0); Albumin/Globulin Ratio 0.7 (0.8-1.8); Bilirubin, Total 0.7 mg/dL (0.1-1.0); Calcium, Blood 7.8 mg/dL (8.5-10.1); Creatinine, Blood 1.31 mg/dL (0.60-1.20); Globulin, Blood 3.5 g/dL (2.2-4.0); Magnesium, Blood 2.3 mg/dL (1.6-2.4); Potassium, Blood 4.3 mmol/L (3.5-5.5); Total Protein, Blood 5.9 g/dL (6.4-8.2)
--- NOTE | 2021-07-12 05:00 | NUR ---
SHIFT SUMMARY (ADMIT) REPORT REC FORM NIKKI, RN @ 7376, PT ARRIVED VIA GURNEY @ 0020 W/RT AT BEDSIDE, XFER'D VIA SLIDER, PT A&OX4, ABLE TO USE CALL LIGHT APPROP, NO ACUTE CHANGES SINCE ASSUMING CARE, NO C/O ANY KIND, VSS, TOLERATED CPAP WELL T/O THE NIGHT @ 80%, ROTATED ON SIDES T/O THE NIGHT, SLEEPING AT THIS TIME, CALL LIGHT IN REACH, WILL CONT TO MONITOR UNTIL REPORT GIVNE TO DAY RN.
--- NOTE | 2021-07-12 17:08 | NUR ---
SHIFT SUMMARY; ASSUMED CARE AT 0700, A/A/OX4 WITH CPAP IN PLACE AT 80% 20. MOVED TO RECLINER FOR BREAKFAST. HIGH FLOW CANNULA PLACED FOR EATING AND ORAL CARE. DESAT TO MID 80'S WHEN EATING. CPAP REPLACED WHEN FINISHED EATING INCREASED TO 100% TO BRING SATS TO LOW 90'S. HR DECREASED DURING SHIFT TO LOW 40'S. PROVIDER NOTIFIED. 0.5MG ATROPINE GIVEN PER VERBAL ORDER. HR RATE INCREASED TO 70'S, BP DECREASED TO 70'S/40'S. 500ML NS BOLUS GIVEN TO INCREASE PRESSURE TO 99/46. REPORTS FEELING MUCH BETTER. SELF POSITIONS NEEDED. STANDS AND PIVOTS WITH ASSISTANCE. REPORT GIVEN TO FLIGHT CREW TO TRANSFER TO [facility]. REPORT TO SUNG DEVINE AT [facility] TO ASSUME CARE.
== END 2021-07-12 16:50 | DRG 871 ==
LOC: ER 14:46 → ERHOLD 19:46 → PCU 07-12 00:09
PROVIDERS: Student in an Organized Health Care Education/Training Program; ADMIT Hospitalist
PROC: 5A09357 Assistance with Respiratory Ventilation, Less than 24 Consecutive Hours, Continuous Positive Airway Pressure (ICD-10-PCS; 2021-07-11)
PROC: 8E0ZXY6 Isolation (ICD-10-PCS; 2021-07-11)
PROC: 3E0333Z Introduction of Anti-inflammatory into Peripheral Vein, Percutaneous Approach (ICD-10-PCS; principal; 2021-07-12)
PROC: XW033E5 Introduction of Remdesivir Anti-infective into Peripheral Vein, Percutaneous Approach, New Technology Group 5 (ICD-10-PCS; 2021-07-12)
DX: A41.89 Other specified sepsis (principal); U07.1 COVID-19; J12.82 Pneumonia due to coronavirus disease 2019; J96.01 Acute respiratory failure with hypoxia; N17.9 Acute kidney failure, unspecified; I13.0 Hypertensive heart and chronic kidney disease with heart failure and stage 1 through stage 4 chronic kidney disease, or unspecified chronic kidney disease; J44.0 Chronic obstructive pulmonary disease with (acute) lower respiratory infection; Z68.41 Body mass index [BMI] 40.0-44.9, adult; J44.1 Chronic obstructive pulmonary disease with (acute) exacerbation; E87.2 Acidosis; E66.01 Morbid (severe) obesity due to excess calories; Z66 Do not resuscitate; E78.5 Hyperlipidemia, unspecified; I50.9 Heart failure, unspecified; K21.9 Gastro-esophageal reflux disease without esophagitis; F32.9 Major depressive disorder, single episode, unspecified; D72.810 Lymphocytopenia; E88.09 Other disorders of plasma-protein metabolism, not elsewhere classified; I25.10 Atherosclerotic heart disease of native coronary artery without angina pectoris; N18.30 Chronic kidney disease, stage 3 unspecified; G47.33 Obstructive sleep apnea (adult) (pediatric); Z90.49 Acquired absence of other specified parts of digestive tract; Z90.2 Acquired absence of lung [part of]; Z88.8 Allergy status to other drugs, medicaments and biological substances; Z87.891 Personal history of nicotine dependence; Z79.82 Long term (current) use of aspirin; Z79.51 Long term (current) use of inhaled steroids; Z86.018 Personal history of other benign neoplasm
CPT/HCPCS: 36415; 36600; 71045; 80053; 82803; 83605; 83735; 84484; 85025; 93005; 93010; 94640; 94660; 94762; 96374; 96375; 99285-25; A9270; J0461; J1100; J1650; J2765; J7030